=== PATIENT | male | born 1985 | race Caucasian/White ===

== ENCOUNTER 2016-11-06 15:36 | Emergency (ER) | payer BC ==
[~2016-11-06] VITALS: Ht 200.7 cm; Wt 100.0 kg
[~2016-11-06 15:36] MED LIST: BACT800T5 PO; CEPH-460 PO; IBUP800T23 PO; ROBA500T PO
[2016-11-06 15:38] VITALS: BP 122/76; PULSE 78; RESP 17; TEMP 97.8; O2SAT 99
--- NOTE | 2016-11-06 15:48 | PD ---
Physical Exam Time Seen by Provider: 15:46 Narrative 31 y/o male with esophageal foreign body, eating pork yesterday at one pm and unable to swallow since then. Vital signs reviewed. Seen at triage desk. Awaiting bed placement. Data Data Last Documented VS Vital Signs Date Time Temp Pulse Resp B/P Pulse Ox O2 Delivery O2 Flow Rate FiO2 11/06/16 15:38 97.8 78 17 122/76 99 MDM Medical Record Reviewed: Yes Supervised Visit with QAMAR: Chi Norton November 06, 2016 15:48
== END 2016-11-06 16:39 | disposition left against medical advice (07) ==
LOC: NED 15:36
DX: R13.10 Dysphagia, unspecified (principal)
CPT/HCPCS: 99281